=== PATIENT | female | born 1935 | race Caucasian/White ===

== ENCOUNTER 2017-07-08 08:51 | Inpatient (IN) | payer MEDICARE, BC ==
[2017-07-08] MEDS ORDERED: Sodium Chloride 0.9% 1,000 ML IV SCH (09:15)
--- NOTE | 2017-07-08 09:15 | EDM.PDOC ---
ED HPI GENERAL MEDICAL PROBLEM - General Chief Complaint: Neurological Problem Stated Complaint: [facility] ambulance Time Seen by Provider: 07/08/17 09:05 Source of Information: Reports: EMS Notes Reviewed, Family History Limitations: Reports: Altered Mental Status - History of Present Illness INITIAL COMMENTS - FREE TEXT/NARRATIVE: 81-year-old female presents to the ED per ambulance from [place]. KULDIP rowley lives alone at home but is careful by her daughter who is a RN. 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 Reportedly she's not been eating or drinking much for the last 2-3 days. No history of vomiting. No BM 3 days. Due to not taking any fluids or medications yet today she was out to the ED for further evaluation. She seems to have increased weakness of her left abraham-face which was not noticed prior. Patient said previous CVA with right hemiparesis. She no longer walks. Police apparently arrived on scene initially and placed her on a mask at 15 L/m. It's unclear what her initial O2 sats were. Paramedics his left the mask in place. A she herself is nonverbal. She will obey commands and spoken to quite loudly such as opening her mouth . Mouth is very dry and tongue is coated she clinically is volume depleted with poor skin turgor. Apparently she took only a few sips of fluids this morning. Patient's CODE STATUS is DO NOT RESUSCITATE DO NOT INTUBATE comfort care measures for the most part only. Onset: Gradual Onset Date: 07/06/17 Duration: Hour(s): Location: Reports: Generalized (Generalized) Quality: Reports: Other (Question is whether or not she's had a recurrent stroke. She is on Xarelto because of intermittent nature fibrillation.) Severity: Moderate (Previous right hemiparesis and perhaps left facial weakness appreciated the last few days.) Improves with: Reports: None Worsens with: Reports: None Context: Denies: Activity, Exercise, Lifting, Sick Contact, Trauma, Other Associated Symptoms: Reports: Confusion, Diaphoresis, Loss of Appetite, Weakness (Seems to have increased weakness even on her right side and perhaps some left-sided facial weakness appreciated by family and paramedics.). Denies : No Other Symptoms, Chest Pain, Cough, cough w sputum, Fever/Chills (Presents cool and clammy.), Nausea/Vomiting Treatments PEDIGREE TRACER: Reports: Other (see below) - Related Data Allergies Allergy/AdvReac Type Severity Reaction Status Date / Time lisinopril Allergy Cannot Verified 07/28/15 07:35 Remember Home Meds: Home Meds Acetaminophen [Tylenol] 650 mg PO TID 07/08/17 [History] Aspirin [Lo-Dose Aspirin EC] 81 mg PO DAILY 07/08/17 [History] Bisacodyl [Correctol] 5 mg PO ASDIRECTED 07/08/17 [History] Clopidogrel [Plavix] 75 mg PO DAILY 07/08/17 [History] Cranberry 400 mg PO DAILY 07/08/17 [History] Gabapentin [Neurontin] 300 mg PO BEDTIME 07/08/17 [History] Hydrochlorothiazide 25 mg PO DAILY 07/08/17 [History] Memantine [Namenda] 10 mg PO BID 07/08/17 [History] Polyethylene Glycol 3350 [MiraLAX] 17 gm PO DAILY PRN 07/08/17 [History] QUEtiapine Fumarate [Seroquel] 25 mg PO BEDTIME 07/08/17 [History] Sennosides/Docusate Sodium [Senna-Docusate Sodium] 1 tab PO BID 07/08/17 [ History] Sertraline [Zoloft] 50 mg PO DAILY 07/08/17 [History] amLODIPine [Norvasc] 5 mg PO DAILY 07/08/17 [History] atorvaSTATin [Lipitor] 10 mg PO BEDTIME 07/08/17 [History] traMADol [Ultram] 50 mg PO BID PRN 07/08/17 [History] Past Medical History HEENT History: Reports: Macular Degeneration Other HEENT History: cereumen impaction Cardiovascular History: Reports: High Cholesterol, Hypertension Gastrointestinal History: Reports: GERD Genitourinary History: Reports: UTI, Recurrent Other Genitourinary History: uterine prolapse with pessary Musculoskeletal History: Reports: Fibromyalgia, Osteoarthritis Other Neuro History: dementia, dizziness Psychiatric History: Reports: Dementia Other Dermatologic History: toe ulcer - Past Surgical History HEENT Surgical History: Reports: Cataract Surgery, Tonsillectomy Social & Family History - Tobacco Use Smoking Status *Q: Never Smoker Second Hand Smoke Exposure: No - Alcohol Use Days Per Week of Alcohol Use: 0 - Recreational Drug Use Recreational Drug Use: No Drug Use in Last 12 Months: No - Living Situation & Occupation Living situation: Reports: , with Family (She lives with her daughter who is an RN in [place].) Occupation: Retired ED ROS GENERAL - Review of Systems Review Of Systems: See Below Constitutional: Reports: Malaise, Weakness, Fatigue, Decreased Appetite, Weight Loss. Denies: Fever, Chills HEENT: Reports: Other (Poor eyesight) Respiratory: Reports: Shortness of Breath, Cough (Occasional nonproductive cough ). Denies: Wheezing, Pleuritic Chest Pain Endocrine: Reports: Fatigue GI/Abdominal: Reports: Constipation (No bowel movement 3 days.). Denies: Vomiting : Reports: Other (Prone to urinary tract infections. Incontinent of urine at times) Musculoskeletal: Reports: Joint Pain (Often both knees she's had previous right total knee replacement but this remains painful for her. She no longer is ambulatory.) Skin: Reports: Diaphoresis, Other (Cold clammy and pallid in presentation.) - Physical Exam Exam: See Below Exam Limited By: Other (Patient is nonverbal.) General Appearance: Moderate Distress ( She will be okay him commands such as opening her mouth.), Other (Lips are very dry tongue is very dry and coated as is the roof of her mouth and buccal mucosa.) Eye Exam: Bilateral Eye: Normal Inspection (No jaundice.) Throat/Mouth: Other Head Exam: Atraumatic (Again tongue is very dry coated as is the oropharynx and the roof of her mouth.), Normocephalic Neck: No: Carotid Bruit, Lymphadenopathy (L), Lymphadenopathy (R) Respiratory/Chest: Decreased Breath Sounds (Breath sounds are diminished to the) , Rhonchi ( lower 30% of lung zaldivar that she's taking shallow respirations. Occasional rhonchi appreciated anteriorly.). No: Wheezing Cardiovascular: Regular Rate, Rhythm (Heart rate is 100 and sinus on the monitor.), No Edema, No Gallop, No JVD, No Murmur, No Rub GI/Abdominal: Soft, Non-Tender, No Organomegaly Neuro Exam (Abbreviated): Other (Patient is nonverbal. She does not walk anymore. She has a right hemiparesis. I can detect no movement on the right side. Absence of reflexes both patellar and biceps on the right side. She has a 2+ reflex at the left knee joint. The biceps is 1+ on the left side) DTR: 0: Bicep (R), Patella (R), Achilles (R), Achilles (L), 1+: Bicep (L), 2+: Patella (L) Extremities: Normal Inspection, Other (Right knee shows evidence of total knee replacement but it is swollen and very warm to palpation suggestive of underlying inflammatory process.) Skin Exam: Cool, Pallor ( pallor.), Other (Clinical summary clammy and) EKG INTERPRETATION EKG Date: 07/08/17 Time: 09:05 Rhythm: NSR Rate (Beats/Min): 100 [place]: LAD-Left [place] Deviation (-31) P-Wave: Present QRS: Other (Q waves in II, III, and F aVF compatible with an old inferior wall myocardial infarction. There is a Q-wave in V1 near Q waves V2 V3 V4 which delayed R-wave progression. Highly suspect an old anteroseptal myocardial infarction as well.) EKG Interpretation Comments: Abnormal ECG Course - Vital Signs Last Recorded V/S: Last Vital Signs Temp 36.0 C 07/08/17 09:20 Pulse 92 07/08/17 09:20 Resp 16 07/08/17 09:20 BP 119/87 07/08/17 09:20 Pulse Ox 95 07/08/17 09:20 - Orders/Labs/Meds Orders: Active Orders 24 hr Category Date Time Status Admission Status [Patient Status] [ADT] Routine ADT 07/08/17 11:48 Ordered EKG Documentation Completion [RC] STAT Care 07/08/17 09:01 Active Oxygen Therapy [RC] ASDIRECTED Care 07/08/17 09:02 Active CULTURE BLOOD [BC] Stat Lab 07/08/17 09:32 Received CULTURE BLOOD [BC] Stat Lab 07/08/17 09:50 Received Sodium Chloride 0.9% [Normal Saline] 1,000 ml Med 07/08/17 09:15 Active IV ASDIRECTED Blood Culture x2 Reflex Set [OM.PC] Stat Oth 07/08/17 09:02 Ordered Medication Orders Sodium Chloride (Normal Saline) 1,000 mls @ 500 mls/hr IV ASDIRECTED BRITTNI Last Admin: 07/08/17 09:16 Dose: 500 mls/hr Labs: Laboratory Tests 07/08/17 07/08/1707/08/18 Range/Units 08:57 09:02 09:02 WBC 11.75 H (3.98-10.04) K/mm3 RBC 4.95 (3.98-5.22) M/mm3 Hgb 16.3 H (11.2-15.7) gm/L Hct 49.3 H (34.1-44.9) % MCV 99.6 H (79.4-94.8) fl MCH 32.9 H (25.6-32.2) pg MCHC 33.1 (32.2-35.5) g/dl RDW Std Deviation 51.2 H (36.4-46.3) fL Plt Count 278 (182-369) K/mm3 MPV 10.2 (9.4-12.3) fl Neutrophils % (Manual) 77 H (40-60) % Band Neutrophils % 1 (0-10) % Lymphocytes % (Manual) 16 L (20-40) % Atypical Lymphs % 0 % Monocytes % (Manual) 5 (2-10) % Eosinophils % (Manual) 1 (0.7-5.8) % Basophils % (Manual) 0 L (0.1-1.2) Platelet Estimate Adequate Plt Morphology Comment Normal RBC Morph Comment Normal PT (8.0-13.0) SECONDS INR Sodium 140 (136-145) mEq/L Potassium 3.8 (3.5-5.1) mEq/L Chloride 99 (98-107) mEq/L Carbon Dioxide 35 H (21-32) mEq/L Anion Gap 9.8 (5-15) BUN 19 H (7-18) mg/dL Creatinine 0.8 (0.55-1.02) mg/dL Est Cr Clr Drug Dosing TNP Estimated GFR (MDRD) > 60 (>60) mL/min BUN/Creatinine Ratio 23.8 H (14-18) Glucose 119 H (83-115) mg/dL POC Glucose 115 H (83-110) mg/dL Serum Osmolality 301 H (280-300) mosm/kg Lactic Acid (0.4-2.0) mmol/L Calcium 10.0 (8.5-10.1) mg/dL Magnesium 2.3 (1.8-2.4) mg/dl Total Bilirubin 1.0 (0.2-1.0) mg/dL AST 84 H (15-37) U/L ALT 37 (14-59) U/L Alkaline Phosphatase 65 (46-116) U/L CK-MB (CK-2) 8.8 H (0-3.6) ng/ml Troponin I 0.394 H* (0.00-0.056) ng/mL C-Reactive Protein 7.0 H* (<1.0) mg/dL NT-Pro-B Natriuret Pep (0-450) pg/mL Total Protein 7.1 (6.4-8.2) g/dl Albumin 3.2 L (3.4-5.0) g/dl Globulin 3.9 gm/dL Albumin/Globulin Ratio 0.8 L (1-2) Urine Color (Yellow) Urine Appearance (Clear) Urine pH (5.0-8.0) Ur Specific [place] (1.005-1.030) Urine Protein (Negative) Urine Glucose (UA) (Negative) Urine Ketones (Negative) Urine Occult Blood (Negative) Urine Nitrite (Negative) Urine Bilirubin (Negative) Urine Urobilinogen (0.2-1.0) Ur Leukocyte Esterase (Negative) 07/08/17 07/08/17 07/08/17 Range/Units 09:02 09:02 09:10 WBC (3.98-10.04) K/mm3 RBC (3.98-5.22) M/mm3 Hgb (11.2-15.7) gm/L Hct (34.1-44.9) % MCV (79.4-94.8) fl MCH (25.6-32.2) pg MCHC (32.2-35.5) g/dl RDW Std Deviation (36.4-46.3) fL Plt Count (182-369) K/mm3 MPV (9.4-12.3) fl Neutrophils % (Manual) (40-60) % Band Neutrophils % (0-10) % Lymphocytes % (Manual) (20-40) % Atypical Lymphs % % Monocytes % (Manual) (2-10) % Eosinophils % (Manual) (0.7-5.8) % Basophils % (Manual) (0.1-1.2) Platelet Estimate Plt Morphology Comment RBC Morph Comment PT 10.9 (8.0-13.0) SECONDS INR 1.02 Sodium (136-145) mEq/L Potassium (3.5-5.1) mEq/L Chloride (98-107) mEq/L Carbon Dioxide (21-32) mEq/L Anion Gap (5-15) BUN (7-18) mg/dL Creatinine (0.55-1.02) mg/dL Est Cr Clr Drug Dosing Estimated GFR (MDRD) (>60) mL/min BUN/Creatinine Ratio (14-18) Glucose (83-115) mg/dL POC Glucose (83-110) mg/dL Serum Osmolality (280-300) mosm/kg Lactic Acid (0.4-2.0) mmol/L Calcium (8.5-10.1) mg/dL Magnesium (1.8-2.4) mg/dl Total Bilirubin (0.2-1.0) mg/dL AST (15-37) U/L ALT (14-59) U/L Alkaline Phosphatase (46-116) U/L CK-MB (CK-2) (0-3.6) ng/ml Troponin I (0.00-0.056) ng/mL C-Reactive Protein (<1.0) mg/dL NT-Pro-B Natriuret Pep 331 (0-450) pg/mL Total Protein (6.4-8.2) g/dl Albumin (3.4-5.0) g/dl Globulin gm/dL Albumin/Globulin Ratio (1-2) Urine Color Dark yellow (Yellow) Urine Appearance Clear (Clear) Urine pH 7.0 (5.0-8.0) Ur Specific [place] 1.020 (1.005-1.030) Urine Protein 1+ H (Negative) Urine Glucose (UA) Negative (Negative) Urine Ketones Negative (Negative) Urine Occult Blood Negative (Negative) Urine Nitrite Negative (Negative) Urine Bilirubin Negative (Negative) Urine Urobilinogen 0.2 (0.2-1.0) Ur Leukocyte Esterase Negative (Negative) 07/08/17 Range/Units 09:32 WBC (3.98-10.04) K/mm3 RBC (3.98-5.22) M/mm3 Hgb (11.2-15.7) gm/L Hct (34.1-44.9) % MCV (79.4-94.8) fl MCH (25.6-32.2) pg MCHC (32.2-35.5) g/dl RDW Std Deviation (36.4-46.3) fL Plt Count (182-369) K/mm3 MPV (9.4-12.3) fl Neutrophils % (Manual) (40-60) % Band Neutrophils % (0-10) % Lymphocytes % (Manual) (20-40) % Atypical Lymphs % % Monocytes % (Manual) (2-10) % Eosinophils % (Manual) (0.7-5.8) % Basophils % (Manual) (0.1-1.2) Platelet Estimate Plt Morphology Comment RBC Morph Comment PT (8.0-13.0) SECONDS INR Sodium (136-145) mEq/L Potassium (3.5-5.1) mEq/L Chloride (98-107) mEq/L Carbon Dioxide (21-32) mEq/L Anion Gap (5-15) BUN (7-18) mg/dL Creatinine (0.55-1.02) mg/dL Est Cr Clr Drug Dosing Estimated GFR (MDRD) (>60) mL/min BUN/Creatinine Ratio (14-18) Glucose (83-115) mg/dL POC Glucose (83-110) mg/dL Serum Osmolality (280-300) mosm/kg Lactic Acid 2.6 H (0.4-2.0) mmol/L Calcium (8.5-10.1) mg/dL Magnesium (1.8-2.4) mg/dl Total Bilirubin (0.2-1.0) mg/dL AST (15-37) U/L ALT (14-59) U/L Alkaline Phosphatase (46-116) U/L CK-MB (CK-2) (0-3.6) ng/ml Troponin I (0.00-0.056) ng/mL C-Reactive Protein (<1.0) mg/dL NT-Pro-B Natriuret Pep (0-450) pg/mL Total Protein (6.4-8.2) g/dl Albumin (3.4-5.0) g/dl Globulin gm/dL Albumin/Globulin Ratio (1-2) Urine Color (Yellow) Urine Appearance (Clear) Urine pH (5.0-8.0) Ur Specific [place] (1.005-1.030) Urine Protein (Negative) Urine Glucose (UA) (Negative) Urine Ketones (Negative) Urine Occult Blood (Negative) Urine Nitrite (Negative) Urine Bilirubin (Negative) Urine Urobilinogen (0.2-1.0) Ur Leukocyte Esterase (Negative) Meds: Medications Generic Name Dose Route Start Last Admin Trade Name Freq PRN Reason Stop Dose Admin Sodium Chloride 1,000 mls @ 500 mls/hr 07/08/17 09:15 07/08/17 09:16 Normal Saline IV 500 mls/hr ASDIRECTED BRITTNI Administration Discontinued Medications Generic Name Dose Route Start Last Admin Trade Name Freq PRN Reason Stop Dose Admin Acetaminophen 650 mg 07/08/17 10:13 07/08/17 10:22 Tylenol PO 07/08/17 10:14 650 mg NOW ONE Administration - Radiology Interpretation Free Text/Narrative:: 81-year-old female arrives per ambulance from [place]. Apparently she lives at home with her daughter who is an RN caring for her. Apparently she is gone downhill over the last 3 days with decreased oral intake of solids and fluids. No fevers been appreciated. Sternum for possible recurrence of stroke is apparently she's had a history of CVA with right hemiparesis and many TIAs in the past. She has a history of intermittent atrial fibrillation and is on xarelto. Currently in sinus rhythm. Patient is nonverbal. She has a dense right hemiparesis. Not appreciate any obvious weakness of her left face that she's not able to obey any commands but she was able to open her mouth for inspection. Clinically she is volume depleted. Question is whether she may be septic. She is cool and clammy without a fever at this time. He wishes to identify where the illness might be and is opted for conservative measures with fluids and antibiotics if indicated. CT head will be done because of being on blood thinners to rule out any intracranial hemorrhage. One view chest x-ray routine labs as well as blood cultures and urine by catheterization to be obtained. - Re-Assessments/Exams Free Text/Narrative Re-Assessment/Exam: 07/08/17 10:00 History obtained from the daughter who cares for her indicates that this morning she wasn't looking so well. When she did her vital signs the pulse oximeter suggest her heart rate was going between 170-178 and irregular irregular component with rapid atrial fibrillation. O2 sats were in the low 80s. Therefore the ambulance was summoned. Once he was placed on oxygen she seemed to settle down and heart rate came back down to around 99 100 which is what we got here and she is back in sinus rhythm. On questioning of her mom this morning she was complaining of central chest pain. Of note the lab was called over a elevated troponin level at 0.394. Labs are still pending as his chest x-ray and CT of the head to which are not yet done 07/08/17 10:14 daughter indicates that mother does have a mild headache. We did give her some water but she choked quite easily. Will grind up a 650 mg Tylenol tablet provided in applesauce. CT of the brain reveals advanced degenerative changes with diffuse small vessel ischemic changes in both basal ganglia. Small lacunar infarct appreciated in the right basal ganglia. Large infarct appreciated on the left side. No intracranial mass effect or bleeding. Chest x-ray reveals an elevated left hemidiaphragm which is unchanged from previous chest x-rays. There is appears to be mild hilar ingestion. Patient did not take a big breath therefore poor inspirational view. Thoracic aorta appears to be slightly tortuous. 07/08/17 10:28 Labs are now back. Total white count is 11.75 with 77% neutrophils and 1% bands reported. Hemoglobin is 16.3 with hematocrit of 49.3. Platelet count is 278,000. PT is 10.9 with an INR 1.02. Sodium 140 with potassium of 3.8. Chloride 99 with a bicarbonate of 35. I.e. he is a CO2 retainer. Anion gap is normal at 9.8. BUNs 19 with a creatinine of 0.8. GFR is greater than 60. Glucose is 119 at the bedside it was 1:15. Serum osmolality is 301. Lactic acid is elevated at 2.6. Calcium is 10.0 with a magnesium of 2.3. Total bilirubin 1.0. AST is elevated at 84 ELT is 37. Output phosphatase is 65. Note CK-MB is elevated at 8.8 troponin I is elevated at 0.394 suggesting recent myocardial infarction. C-reactive protein is 7.0. Suggest an underlying infective process. BNP is 331. Urinalysis is pending. 07/08/17 11:05 urinalysis is now back and essentially it is negative for infection. I will discuss case with loss prevention consultant hospitalist Dr. Saavedra with a view to hospitalization. Starting on her med she is not on Xarelto She is on Plavix. Departure - Departure Time of Disposition: 11:50 Disposition: Admitted As Inpatient 65 Condition: Fair Clinical Impression: Hemiparesis affecting right side as late effect of cerebrovascular accident, Elevated C-reactive protein (CRP) Acute myocardial infarction Qualifiers: Myocardial infarction type: non-ST elevation myocardial infarction Qualified Code(s): I21.4 - Non-ST elevation (NSTEMI) myocardial infarction Leukocytosis Qualifiers: Leukocytosis type: unspecified Qualified Code(s): D72.829 - Elevated white blood cell count, unspecified - Discharge Information Referrals: Arnel Lam MD [Primary Care Provider] - Forms: ED Department Discharge - My Orders Last 24 Hours: My Active Orders 07/08/17 09:01 EKG Documentation Completion [RC] STAT 07/08/17 09:02 Oxygen Therapy [RC] ASDIRECTED Blood Culture x2 Reflex Set [OM.PC] Stat 07/08/17 09:15 Sodium Chloride 0.9% [Normal Saline] 1,000 ml IV ASDIRECTED 07/08/17 09:32 CULTURE BLOOD [BC] Stat 07/08/17 09:50 CULTURE BLOOD [BC] Stat 07/08/17 11:48 Admission Status [Patient Status] [ADT] Routine - Assessment/Plan Last 24 Hours: My Active Orders 07/08/17 09:01 EKG Documentation Completion [RC] STAT 07/08/17 09:02 Oxygen Therapy [RC] ASDIRECTED Blood Culture x2 Reflex Set [OM.PC] Stat 07/08/17 09:15 Sodium Chloride 0.9% [Normal Saline] 1,000 ml IV ASDIRECTED 07/08/17 09:32 CULTURE BLOOD [BC] Stat 07/08/17 09:50 CULTURE BLOOD [BC] Stat 07/08/17 11:48 Admission Status [Patient Status] [ADT] Routine
[2017-07-08] MEDS ORDERED: Acetaminophen 325 MG Tab PO ONE (10:13)
--- NOTE | 2017-07-08 10:21 | CT ---
Head CT Technique: Multiple axial sections through the brain were obtained. Intravenous contrast was not utilized. Comparison: Prior head CT exam of 08/01/15. Findings: Ventricles along with basal cisterns and sulci over the convexities are mildly prominent. Minimal diminished density is noted within portions of the periventricular white matter compatible with small vessel ischemic demyelination change. Similar findings are seen within portions of the basal ganglia. No evidence of intracranial hemorrhage. No midline shift or mass effect is seen. Mild atherosclerotic calcification is seen within the vertebral vessels and carotid siphon. Bone window settings were reviewed which shows no acute calvarial abnormality. Visualized sinuses are clear. Impression: 1. Mild senescent change. 2. No acute intracranial abnormality is identified. Diagnostic code #2
--- NOTE | 2017-07-08 10:39 | CR ---
Chest: Frontal view of the chest is obtained utilizing portable technique. Comparison: Prior chest x-ray of 07/31/[address] of 08/01/15. Slight atelectasis and scarring is seen within the left base. Lungs otherwise are clear. Heart size is normal. Tortuous thoracic aorta is seen. Scoliosis is present within the spine. Bony structures are osteopenic. Impression: 1. Atelectasis and scarring within the left lung base. 2. Other incidental findings. Nothing acute is otherwise seen. Diagnostic code #2
--- NOTE | 2017-07-08 14:40 | PCM.HP ---
H&P History of Present Illness - General Date of Service: 07/08/17 Admit Problem/Dx: Admission Diagnosis/Problem Admission Diagnosis/Problem Myocardial infarction Source of Information: Family, Provider History Limitations: Reports: No Limitations - History of Present Illness Initial Comments - Free Text/Narative: 81 year old female living at home with her daughter post CVA with a history of dementia presents hypoxic. The patient is more confused. She was placed on a NRM in the field, baseline oxygen saturation is unknown. She has right sided hemiparesis, and expressive aphasia. Initial evaluation documented volume depletion. Abnormal lab findings document, an elevated cardiac enzyme. She did not have a rapid heart rate on presentation; she has a history of PAF reportedly on Xarelto. Onset of Symptoms: Reports: Sudden Symptom Onset Date: 07/08/17 Duration of Symptoms: Reports: Hour(s):, Getting Worse Location: Reports: Generalized Severity: Moderate Improves with: Reports: Medication Worsens with: Reports: None Associated Symptoms: Reports: Loss of Appetite, Malaise, Weakness - Related Data Allergies/Adverse Reactions: Allergies Allergy/AdvReac Type Severity Reaction Status Date / Time lisinopril Allergy Cannot Verified 07/28/15 07:35 Remember Home Medications: Home Meds Acetaminophen [Tylenol] 650 mg PO 06,,07/08/17 [History] Aspirin [Lo-Dose Aspirin EC] 81 mg PO 07/08/17 [History] Bisacodyl [Correctol] 5 mg PO ASDIRECTED PRN 07/08/17 [History] Clopidogrel [Plavix] 75 mg PO 07/08/17 [History] Cranberry 400 mg PO 07/08/17 [History] Gabapentin [Neurontin] 300 mg PO 179907/08/17 [History] Hydrochlorothiazide 25 mg PO 08 07/08/17 [History] Memantine [Namenda] 10 mg PO 07/08/17 [History] Polyethylene Glycol 3350 [MiraLAX] 17 gm PO DAILY PRN 07/08/17 [History] QUEtiapine Fumarate [Seroquel] 25 mg PO 1800 07/08/17 [History] Sennosides/Docusate Sodium [Senna-Docusate Sodium] 1 tab PO ,07/08/17 [ History] Sertraline [Zoloft] 50 mg PO 1800 07/08/17 [History] amLODIPine [Norvasc] 5 mg PO 08 07/08/17 [History] atorvaSTATin [Lipitor] 10 mg PO 1800 07/08/17 [History] traMADol [Ultram] 50 mg PO 07/08/17 [History] Past Medical History HEENT History: Reports: Macular Degeneration Other HEENT History: cereumen impaction Cardiovascular History: Reports: High Cholesterol, Hypertension Gastrointestinal History: Reports: GERD Genitourinary History: Reports: UTI, Recurrent Other Genitourinary History: uterine prolapse with pessary [employer]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: Musculoskeletal History: Reports: Fibromyalgia, Osteoarthritis Other Neuro History: dementia, dizziness Psychiatric History: Reports: Dementia Other Dermatologic History: toe ulcer healed - Infectious Disease History Infectious Disease History: Reports: Chicken Pox - Past Surgical History HEENT Surgical History: Reports: Cataract Surgery, Tonsillectomy GI Surgical History: Reports: Cholecystectomy Social & Family History - Family History Family Medical History: Noncontributory - Tobacco Use Smoking Status *Q: Never Smoker Second Hand Smoke Exposure: No - Caffeine Use Caffeine Use: Reports: Coffee - Alcohol Use Days Per Week of Alcohol Use: 0 - Recreational Drug Use Recreational Drug Use: No Drug Use in Last 12 Months: No - Living Situation & Occupation Living situation: Reports: , with Family (She lives with her daughter who is an RN in [place].) Occupation: Retired H&P Review of Systems - Review of Systems: Review Of Systems: See Below General: Reports: Malaise, Weakness HEENT: Reports: No Symptoms Pulmonary: Reports: No Symptoms Cardiovascular: Reports: No Symptoms Gastrointestinal: Reports: Decreased Appetite Genitourinary: Reports: No Symptoms Musculoskeletal: Reports: No Symptoms Skin: Reports: No Symptoms Psychiatric: Reports: Confusion Neurological: Reports: No Symptoms Hematologic/Lymphatic: Reports: No Symptoms Immunologic: Reports: No Symptoms Exam - Exam Exam: See Below - Vital Signs Vital Signs: Last Vital Signs Temp 36.7 C 07/08/17 12:41 Pulse 73 07/08/17 12:41 Resp 20 07/08/17 12:41 BP 103/72 07/08/17 12:41 Pulse Ox 96 07/08/17 12:41 Weight: 65.952 kg - Exam Quality Assessment: Supplemental Oxygen, DVT Prophylaxis General: Alert, Oriented, Cooperative HEENT: Conjunctiva Clear, Nares Patent, Normal Nasal Septum, Pupils Equal, Pupils Reactive, PERRLA Neck: Trachea Midline Lungs: Clear to Auscultation, Normal Respiratory Effort Cardiovascular: Regular Rate, Regular Rhythm GI/Abdominal Exam: Normal Bowel Sounds, Soft, Non-Tender, No Organomegaly, No Distention (Female) Exam: Deferred Rectal (Female) Exam: Deferred Back Exam: Normal Inspection Extremities: Normal Inspection Skin: Warm Neurological: Cranial Nerves Intact Neuro Extensive - Mental Status: Alert Neuro Extensive - Motor, Sensory, Reflexes: CN II-XII Intact Psychiatric: Alert - Patient Data Result Diagrams: 07/08/17 09:02 07/08/17 09:02 *Q Meaningful Use (ADM) - VTE *Q VTE Criteria *Q: - Stroke *Q Stroke Criteria *Q: - AMI *Q AMI Criteria *Q: - Problem List (1) Acute myocardial infarction SNOMED Code(s): 93279864 ICD Code: I21.9 - ACUTE MYOCARDIAL INFARCTION, UNSPECIFIED Status: Acute Current Visit: Yes Qualifiers: Myocardial infarction type: non-ST elevation myocardial infarction Qualified Code(s): I21.4 - Non-ST elevation (NSTEMI) myocardial infarction (2) Elevated C-reactive protein (CRP) SNOMED Code(s): 519557690679597 ICD Code: R79.82 - ELEVATED C-REACTIVE PROTEIN (CRP) Status: Acute Current Visit: Yes (3) Hemiparesis affecting right side as late effect of cerebrovascular accident SNOMED Code(s): 259561486 ICD Code: I69.351 - HEMIPLGA FOLLOWING CEREBRAL INFRC AFF RIGHT DOMINANT SIDE Status: Acute Current Visit: Yes (4) Leukocytosis SNOMED Code(s): 508597545 ICD Code: D72.829 - ELEVATED WHITE BLOOD CELL COUNT, UNSPECIFIED Status: Acute Current Visit: Yes Qualifiers: Leukocytosis type: unspecified Qualified Code(s): D72.829 - Elevated white blood cell count, unspecified Problem List Initiated/Reviewed/Updated: Yes Orders Last 24hrs: Active Orders 24 hr Category Date Time Status [employer] Evaluation and Treatment [CONS] Routine Cons 07/08/17 14:01 Active Heart Healthy Diet [DIET] Diet 07/08/17 Dinner Active Soft Diet [DIET] Diet 07/08/17 Dinner Active Code Status [Resuscitation Status] Routine Resus Stat 07/08/17 13:00 Ordered Medication Orders Sodium Chloride (Normal Saline) 1,000 mls @ 500 mls/hr IV ASDIRECTED [facility] Last Admin: 07/08/17 09:16 Dose: 500 mls/hr Assessment/Plan Comment:: Impression: ACS/NONSTEMI without prior documented history ECG changes suggest an old [place] Reportedly history of PAF on Xarelto, will clarify. History of CVA with right sided hemiparesis History of dementia with acute on chronic mental status change Chronic HTN HLD Fibromyalgia Plan: ACS protocol, conservative approach Continue home meds after swallow evaluation Infectious work up 2 D echo re: LVEF, WMA Daily Labs Consult PT/OT.CM (re: ) Code status, DNR/DNI; clarify comfort measures to be added DVT/GI prophylaxis
[2017-07-08] MEDS ORDERED: Bisacodyl 5 MG Tab PO PRN (14:47)
[2017-07-08] MEDS ORDERED: Polyethylene Glycol 3350 Powder 17 GM Packet PO PRN (14:47)
[2017-07-08] MEDS ORDERED: Clopidogrel 75 MG Tab PO ONE (15:15)
[2017-07-08] MEDS: Sodium Chloride 0.45% 1,000 ML IV SCH (15:47)
[2017-07-08] MEDS: Simvastatin 10 MG Tab PO SCH (18:21)
[2017-07-08] MEDS: QUEtiapine 25 MG Tab PO SCH (18:21)
[2017-07-08] MEDS: Sertraline 50 MG Tab PO SCH (18:21)
[2017-07-08] MEDS: Memantine 10 MG Tab PO SCH (18:21)
[2017-07-08] MEDS: traMADol 50 MG Tab PO SCH (18:21)
[2017-07-08] MEDS: Gabapentin 300 MG Cap PO SCH (18:21)
[2017-07-08] MEDS: Enoxaparin 60 MG/0.6 ML Syringe SUBCUT SCH (18:21)
[2017-07-08] MEDS: Doxycycline 100 MG in Sodium Chloride 0.9% 100 ML IV SCH (22:35)
[2017-07-08] MEDS: Saccharomyces Boulardii (Probiotic) 250 MG Cap PO SCH (22:35)
[2017-07-09] MEDS: Sodium Chloride 0.45% 1,000 ML IV SCH (01:28)
[2017-07-09] MEDS: Enoxaparin 60 MG/0.6 ML Syringe SUBCUT SCH ×2 (05:56→18:18)
[2017-07-09] MEDS: Saccharomyces Boulardii (Probiotic) 250 MG Cap PO SCH ×2 (08:53→20:21)
[2017-07-09] MEDS: Aspirin 81 MG Tab.EC PO SCH (08:53)
[2017-07-09] MEDS: amLODIPine 5 MG Tab PO SCH (08:53)
[2017-07-09] MEDS: Clopidogrel 75 MG Tab PO SCH (08:53)
[2017-07-09] MEDS: traMADol 50 MG Tab PO SCH ×2 (08:54→18:18)
[2017-07-09] MEDS: Memantine 10 MG Tab PO SCH ×2 (08:54→18:19)
[2017-07-09] MEDS: Doxycycline 100 MG in Sodium Chloride 0.9% 100 ML IV SCH ×2 (09:01→20:22)
[2017-07-09] MEDS: Sertraline 50 MG Tab PO SCH (18:18)
[2017-07-09] MEDS: QUEtiapine 25 MG Tab PO SCH (18:18)
[2017-07-09] MEDS: Gabapentin 300 MG Cap PO SCH (18:18)
[2017-07-09] MEDS: Simvastatin 10 MG Tab PO SCH (18:19)
--- NOTE | 2017-07-09 19:19 | PCM.PN ---
- General Info Date of Service: 07/09/17 Functional Status: Reports: Urinating - Review of Systems General: Reports: Weakness, Malaise HEENT: Reports: No Symptoms Pulmonary: Reports: Shortness of Breath Cardiovascular: Reports: No Symptoms Gastrointestinal: Reports: No Symptoms Genitourinary: Reports: No Symptoms Musculoskeletal: Reports: No Symptoms Skin: Reports: No Symptoms Neurological: Reports: No Symptoms Psychiatric: Reports: No Symptoms - Patient Data Vitals - Most Recent: Last Vital Signs Temp 37.1 C 07/09/17 14:36 Pulse 71 07/09/17 14:36 Resp 24 H 07/09/17 14:36 BP 107/88 07/09/17 14:36 Pulse Ox 99 07/09/17 14:36 Weight - Most Recent: 67.54 kg I&O - Last 24 Hours: Intake & Output 07/09/17 07/09/17 07/09/17 06:59 14:59 22:59 Intake Total 30 90 240 Balance 30 90 240 Lab Results Last 24 Hours: Laboratory Results - last 24 hr 07/09/17 07/09/17 07/09/17 Range/Units 06:45 06:50 06:50 WBC 7.83 (3.98-10.04) K/mm3 RBC 4.03 (3.98-5.22) M/mm3 Hgb 12.6 (11.2-15.7) gm/L Hct 40.7 (34.1-44.9) % MCV 101.0 H (79.4-94.8) fl MCH 31.3 (25.6-32.2) pg MCHC 31.0 L (32.2-35.5) g/dl RDW Std Deviation 49.1 H (36.4-46.3) fL Plt Count 216 (182-369) K/mm3 MPV 10.3 (9.4-12.3) fl Neut % (Auto) 62.5 (34.0-71.1) % Lymph % (Auto) 23.5 (19.3-51.7) % [place] % (Auto) 11.4 (4.7-12.5) % Eos % (Auto) 2.2 (0.7-5.8) Baso % (Auto) 0.1 (0.1-1.2) % Neut # (Auto) 4.90 (1.56-6.13) K/mm3 Lymph # (Auto) 1.84 (1.18-3.74) K/mm3 [place] # (Auto) 0.89 H (0.24-0.36) K/mm3 Eos # (Auto) 0.17 (0.04-0.36) K/mm3 Baso # (Auto) 0.01 (0.01-0.08) K/mm3 Sodium 137 (136-145) mEq/L Potassium 2.9 L (3.5-5.1) mEq/L Chloride 101 (98-107) mEq/L Carbon Dioxide 33 H (21-32) mEq/L Anion Gap 5.9 (5-15) BUN 14 (7-18) mg/dL Creatinine 0.5 L (0.55-1.02) mg/dL Est Cr Clr Drug Dosing 65.46 mL/min Estimated GFR (MDRD) > 60 (>60) mL/min BUN/Creatinine Ratio 28.0 H (14-18) Glucose 83 (83-115) mg/dL Lactic Acid 0.8 (0.4-2.0) mmol/L Calcium 8.9 (8.5-10.1) mg/dL Troponin I 0.781 H* (0.00-0.056) ng/mL C-Reactive Protein 12.3 H* (<1.0) mg/dL Ignacio Results Last 24 Hours: Microbiology 07/08/17 15:16 Influenza Type A Antigen Screen - Final Nasal, Unspecified NEGATIVE INFLUENZA A VIRUS AG Influenza Type B Antigen Screen - Final NEGATIVE INFLUENZA B VIRUS AG Med Orders - Current: Current Medications Amlodipine Besylate (Norvasc) 5 mg PO DAILY@0800 [facility] Last Admin: 07/09/17 08:53 Dose: 5 mg Aspirin (Halfprin) 81 mg PO DAILY@0800 [facility] Last Admin: 07/09/17 08:53 Dose: 81 mg Bisacodyl (Dulcolax) 5 mg PO ASDIRECTED PRN PRN Reason: Constipation Clopidogrel Bisulfate (Plavix) 75 mg PO DAILY@0800 [facility] Last Admin: 07/09/17 08:53 Dose: 75 mg Enoxaparin Sodium (Lovenox) 60 mg SUBCUT Q12H [facility] Last Admin: 07/09/17 18:18 Dose: 60 mg Gabapentin (Neurontin) 300 mg PO DAILY@1800 [facility] Last Admin: 07/09/17 18:18 Dose: 300 mg Doxycycline Hyclate 100 mg/ (Sodium Chloride) 100 mls @ 100 mls/hr IV Q12HR [facility] Last Admin: 07/09/17 09:01 Dose: 100 mls/hr Memantine (Namenda) 10 mg PO BID@0800,1800 [facility] Last Admin: 07/09/17 18:19 Dose: 10 mg Polyethylene Glycol (Miralax) 17 gm PO DAILY PRN PRN Reason: Constipation Quetiapine Fumarate (Seroquel) 25 mg PO QPM [facility] Last Admin: 07/09/17 18:18 Dose: 25 mg Saccharomyces Boulardii (Florastor) 250 mg PO BID [facility] Last Admin: 07/09/17 08:53 Dose: 250 mg Senna/Docusate Sodium (Senna Plus) 1 tab PO BID@0800,1800 [facility] Last Admin: 07/09/17 18:18 Dose: 1 tab Sertraline HCl (Zoloft) 50 mg PO QPM [facility] Last Admin: 07/09/17 18:18 Dose: 50 mg Simvastatin (Zocor) 10 mg PO QPM [facility] Last Admin: 07/09/17 18:19 Dose: 10 mg Tramadol HCl (Ultram) 50 mg PO BID@0800,1800 [facility] Last Admin: 07/09/17 18:18 Dose: 50 mg Discontinued Medications Acetaminophen (Tylenol) 650 mg PO NOW ONE Stop: 07/08/17 10:14 Last Admin: 07/08/17 10:22 Dose: 650 mg Clopidogrel Bisulfate (Plavix) 300 mg PO ONETIME ONE Stop: 07/08/17 15:16 Last Admin: 07/08/17 15:47 Dose: 300 mg Sodium Chloride (Normal Saline) 1,000 mls @ 500 mls/hr IV ASDIRECTED [facility] Last Admin: 07/08/17 09:16 Dose: 500 mls/hr Sodium Chloride (Sodium Chloride 0.45%) 1,000 mls @ 100 mls/hr IV ASDIRECTED [facility] Stop: 07/09/17 09:00 Last Admin: 07/09/17 01:28 Dose: 100 mls/hr - Exam Quality Assessment: DVT Prophylaxis General: Alert, Oriented, Cooperative, No Acute Distress HEENT: Pupils Equal, Pupils Reactive, EOMI Neck: Trachea Midline, No JVD Lungs: Normal Respiratory Effort Cardiovascular: Regular Rate GI/Abdominal Exam: Normal Bowel Sounds, Soft, Non-Tender, No Organomegaly, No Distention (Female) Exam: Deferred Back Exam: Normal Inspection Extremities: Normal Inspection, Non-Tender, Normal Capillary Refill Skin: Warm Neurological: No New Focal Deficit Psy/Mental Status: Alert, Depressed - Problem List & Annotations (1) Acute myocardial infarction SNOMED Code(s): 07842406 Code(s): I21.9 - ACUTE MYOCARDIAL INFARCTION, UNSPECIFIED Status: Acute Current Visit: Yes Qualifiers: Myocardial infarction type: non-ST elevation myocardial infarction Qualified Code(s): I21.4 - Non-ST elevation (NSTEMI) myocardial infarction (2) Elevated C-reactive protein (CRP) SNOMED Code(s): 801327195041152 Code(s): R79.82 - ELEVATED C-REACTIVE PROTEIN (CRP) Status: Acute Current Visit: Yes (3) Hemiparesis affecting right side as late effect of cerebrovascular accident SNOMED Code(s): 494120685 Code(s): I69.351 - HEMIPLGA FOLLOWING CEREBRAL INFRC AFF RIGHT DOMINANT SIDE Status: Acute Current Visit: Yes (4) Leukocytosis SNOMED Code(s): 991269783 Code(s): D72.829 - ELEVATED WHITE BLOOD CELL COUNT, UNSPECIFIED Status: Acute Current Visit: Yes Qualifiers: Leukocytosis type: unspecified Qualified Code(s): D72.829 - Elevated white blood cell count, unspecified - Problem List Review Problem List Initiated/Reviewed/Updated: Yes - My Orders Last 24 Hours: My Active Orders 07/09/17 08:00 Aspirin [Halfprin] 81 mg PO DAILY@0800 Clopidogrel [Plavix] 75 mg PO DAILY@0800 amLODIPine [Norvasc] 5 mg PO DAILY@0800 07/09/17 20:00 Potassium Chloride 60 meq PO DAILY 07/10/17 05:00 BMP [BASIC METABOLIC PANEL,BMP] [CHEM] DAILY CBC WITH AUTO DIFF [HEME] DAILY CRP [C-REACTIVE PROTEIN] [CHEM] DAILY LACTIC ACID [CHEM] DAILY 07/10/17 08:00 CXR [Chest 1V Frontal] [CR] Routine 07/11/17 05:00 BMP [BASIC METABOLIC PANEL,BMP] [CHEM] DAILY CBC WITH AUTO DIFF [HEME] DAILY CRP [C-REACTIVE PROTEIN] [CHEM] DAILY LACTIC ACID [CHEM] DAILY 07/12/17 05:00 BMP [BASIC METABOLIC PANEL,BMP] [CHEM] DAILY CBC WITH AUTO DIFF [HEME] DAILY CRP [C-REACTIVE PROTEIN] [CHEM] DAILY LACTIC ACID [CHEM] DAILY - Plan Plan:: Impression: ACS/NONSTEMI without prior documented history PNA, mycoplasma ECG changes suggest an old [place] Reportedly history of PAF on Xarelto, will clarify. History of CVA with right sided hemiparesis History of dementia with acute on chronic mental status change Hypokalemia Chronic HTN HLD Fibromyalgia Plan: ACS protocol, conservative approach Continue home meds after swallow evaluation Coverage for mycoplasma 2 D echo re: LVEF, WMA Daily Labs Consult PT/OT.CM (re: ) Code status, DNR/DNI; clarify comfort measures to be added DVT/GI prophylaxis
[2017-07-09] MEDS: Potassium Chloride 10% 20 MEQ/15 ML Soln 30 ML UD Cup PO SCH (20:21)
[2017-07-10] MEDS: Enoxaparin 60 MG/0.6 ML Syringe SUBCUT SCH ×2 (06:29→17:15)
[2017-07-10] MEDS: Memantine 10 MG Tab PO SCH ×2 (08:06→17:16)
[2017-07-10] MEDS: traMADol 50 MG Tab PO SCH ×2 (08:07→17:20)
[2017-07-10] MEDS: Clopidogrel 75 MG Tab PO SCH (08:08)
[2017-07-10] MEDS: Aspirin 81 MG Tab.EC PO SCH (08:08)
[2017-07-10] MEDS: Saccharomyces Boulardii (Probiotic) 250 MG Cap PO SCH ×2 (08:09→20:27)
[2017-07-10] MEDS: Doxycycline 100 MG in Sodium Chloride 0.9% 100 ML IV SCH ×2 (08:13→20:27)
[2017-07-10] MEDS: Potassium Chloride 10% 20 MEQ/15 ML Soln 30 ML UD Cup PO SCH (08:13)
[2017-07-10] MEDS: amLODIPine 5 MG Tab PO SCH ×2 (08:13→17:17)
--- NOTE | 2017-07-10 10:36 | CR ---
Chest: Frontal view of the chest was obtained. Comparison: Prior chest x-ray of 07/08/17. Slight atelectasis is noted within the left base. Lungs otherwise are clear. Heart size is normal. Tortuous thoracic aorta is seen. Calcified mediastinal lymph nodes are noted. Scoliosis is noted within the spine. Bony structures are osteopenic. Impression: 1. Incidental findings. Nothing acute is seen. Diagnostic code #2
--- NOTE | 2017-07-10 16:36 | PCM.PN ---
- General Info Functional Status: Reports: Urinating - Review of Systems General: Reports: Weakness, Fatigue HEENT: Reports: No Symptoms Pulmonary: Reports: No Symptoms Cardiovascular: Reports: No Symptoms Gastrointestinal: Reports: No Symptoms Genitourinary: Reports: No Symptoms Musculoskeletal: Reports: No Symptoms Skin: Reports: No Symptoms Neurological: Reports: No Symptoms Psychiatric: Reports: No Symptoms - Patient Data Vitals - Most Recent: Last Vital Signs Temp 36.3 C 07/10/17 14:53 Pulse 79 07/10/17 14:53 Resp 20 07/10/17 14:53 BP 120/75 07/10/17 14:53 Pulse Ox 92 L 07/10/17 14:53 Weight - Most Recent: 68.629 kg I&O - Last 24 Hours: Intake & Output 07/10/17 07/10/17 07/10/17 06:59 14:59 22:59 Intake Total 0 700 Balance 0 700 Lab Results Last 24 Hours: Laboratory Results - last 24 hr 07/10/17 07/10/17 07/10/17 Range/Units 05:27 05:27 05:27 WBC 6.69 (3.98-10.04) K/mm3 RBC 4.21 (3.98-5.22) M/mm3 Hgb 14.0 (11.2-15.7) gm/L Hct 42.6 (34.1-44.9) % MCV 101.2 H (79.4-94.8) fl MCH 33.3 H (25.6-32.2) pg MCHC 32.9 (32.2-35.5) g/dl RDW Std Deviation 49.0 H (36.4-46.3) fL Plt Count 240 (182-369) K/mm3 MPV 10.3 (9.4-12.3) fl Neut % (Auto) 57.0 (34.0-71.1) % Lymph % (Auto) 27.4 (19.3-51.7) % [place] % (Auto) 12.6 H (4.7-12.5) % Eos % (Auto) 2.7 (0.7-5.8) Baso % (Auto) 0.3 (0.1-1.2) % Neut # (Auto) 3.82 (1.56-6.13) K/mm3 Lymph # (Auto) 1.83 (1.18-3.74) K/mm3 [place] # (Auto) 0.84 H (0.24-0.36) K/mm3 Eos # (Auto) 0.18 (0.04-0.36) K/mm3 Baso # (Auto) 0.02 (0.01-0.08) K/mm3 Sodium 141 (136-145) mEq/L Potassium 4.3 (3.5-5.1) mEq/L Chloride 105 (98-107) mEq/L Carbon Dioxide 32 (21-32) mEq/L Anion Gap 8.3 (5-15) BUN 9 (7-18) mg/dL Creatinine 0.5 L (0.55-1.02) mg/dL Est Cr Clr Drug Dosing 65.46 mL/min Estimated GFR (MDRD) > 60 (>60) mL/min BUN/Creatinine Ratio 18.0 (14-18) Glucose 84 (83-115) mg/dL Lactic Acid 1.0 (0.4-2.0) mmol/L Calcium 9.2 (8.5-10.1) mg/dL C-Reactive Protein 6.8 H* (<1.0) mg/dL Med Orders - Current: Current Medications Amlodipine Besylate (Norvasc) 5 mg PO DAILY@1800 [facility] Aspirin (Halfprin) 81 mg PO DAILY@0800 [facility] Last Admin: 07/10/17 08:08 Dose: 81 mg Bisacodyl (Dulcolax) 5 mg PO ASDIRECTED PRN PRN Reason: Constipation Clopidogrel Bisulfate (Plavix) 75 mg PO DAILY@0800 [facility] Last Admin: 07/10/17 08:08 Dose: 75 mg Enoxaparin Sodium (Lovenox) 60 mg SUBCUT Q12H [facility] Last Admin: 07/10/17 06:29 Dose: 60 mg Gabapentin (Neurontin) 300 mg PO DAILY@1800 [facility] Last Admin: 07/09/17 18:18 Dose: 300 mg Doxycycline Hyclate 100 mg/ (Sodium Chloride) 100 mls @ 100 mls/hr IV Q12HR [facility] Last Admin: 07/10/17 08:13 Dose: 100 mls/hr Memantine (Namenda) 10 mg PO BID@0800,1800 [facility] Last Admin: 07/10/17 08:06 Dose: 10 mg Polyethylene Glycol (Miralax) 17 gm PO DAILY PRN PRN Reason: Constipation Quetiapine Fumarate (Seroquel) 25 mg PO QPM [facility] Last Admin: 07/09/17 18:18 Dose: 25 mg Saccharomyces Boulardii (Florastor) 250 mg PO BID [facility] Last Admin: 07/10/17 08:09 Dose: 250 mg Senna/Docusate Sodium (Senna Plus) 1 tab PO BID@0800,1800 [facility] Last Admin: 07/10/17 08:07 Dose: 1 tab Sertraline HCl (Zoloft) 50 mg PO QPM [facility] Last Admin: 07/09/17 18:18 Dose: 50 mg Simvastatin (Zocor) 10 mg PO QPM [facility] Last Admin: 07/09/17 18:19 Dose: 10 mg Tramadol HCl (Ultram) 50 mg PO BID@0800,1800 [facility] Last Admin: 07/10/17 08:07 Dose: 50 mg Discontinued Medications Acetaminophen (Tylenol) 650 mg PO NOW ONE Stop: 07/08/17 10:14 Last Admin: 07/08/17 10:22 Dose: 650 mg Amlodipine Besylate (Norvasc) 5 mg PO DAILY@0800 [facility] Last Admin: 07/10/17 08:13 Dose: Not Given Clopidogrel Bisulfate (Plavix) 300 mg PO ONETIME ONE Stop: 07/08/17 15:16 Last Admin: 07/08/17 15:47 Dose: 300 mg Sodium Chloride (Normal Saline) 1,000 mls @ 500 mls/hr IV ASDIRECTED [facility] Last Admin: 07/08/17 09:16 Dose: 500 mls/hr Sodium Chloride (Sodium Chloride 0.45%) 1,000 mls @ 100 mls/hr IV ASDIRECTED [facility] Stop: 07/09/17 09:00 Last Admin: 07/09/17 01:28 Dose: 100 mls/hr Potassium Chloride (Potassium Chloride) 60 meq PO DAILY [facility] Stop: 07/11/17 09:01 Last Admin: 07/10/17 08:13 Dose: 60 meq - Exam Quality Assessment: Supplemental Oxygen, DVT Prophylaxis General: Alert, Oriented, Cooperative, No Acute Distress HEENT: Pupils Equal, Pupils Reactive, EOMI Neck: Trachea Midline Lungs: Normal Respiratory Effort Cardiovascular: Regular Rate GI/Abdominal Exam: Normal Bowel Sounds, Soft, Non-Tender, No Organomegaly, No Distention (Female) Exam: Deferred Back Exam: Normal Inspection Extremities: Normal Inspection Skin: Warm Neurological: No New Focal Deficit Psy/Mental Status: Alert, Normal Affect, Normal Mood - Problem List & Annotations (1) Acute myocardial infarction SNOMED Code(s): 01736115 Code(s): I21.9 - ACUTE MYOCARDIAL INFARCTION, UNSPECIFIED Status: Acute Current Visit: Yes Qualifiers: Myocardial infarction type: non-ST elevation myocardial infarction Qualified Code(s): I21.4 - Non-ST elevation (NSTEMI) myocardial infarction (2) Elevated C-reactive protein (CRP) SNOMED Code(s): 035246658135373 Code(s): R79.82 - ELEVATED C-REACTIVE PROTEIN (CRP) Status: Acute Current Visit: Yes (3) Hemiparesis affecting right side as late effect of cerebrovascular accident SNOMED Code(s): 595288883 Code(s): I69.351 - HEMIPLGA FOLLOWING CEREBRAL INFRC AFF RIGHT DOMINANT SIDE Status: Acute Current Visit: Yes (4) Leukocytosis SNOMED Code(s): 653435769 Code(s): D72.829 - ELEVATED WHITE BLOOD CELL COUNT, UNSPECIFIED Status: Acute Current Visit: Yes Qualifiers: Leukocytosis type: unspecified Qualified Code(s): D72.829 - Elevated white blood cell count, unspecified - Problem List Review Problem List Initiated/Reviewed/Updated: Yes - My Orders Last 24 Hours: My Active Orders 07/10/17 18:00 amLODIPine [Norvasc] 5 mg PO DAILY@1800 07/11/17 05:00 BMP [BASIC METABOLIC PANEL,BMP] [CHEM] DAILY CBC WITH AUTO DIFF [HEME] DAILY CRP [C-REACTIVE PROTEIN] [CHEM] DAILY FOLIC ACID [CHEM] Routine LACTIC ACID [CHEM] DAILY VITAMIN B12 [CHEM] Routine 07/12/17 05:00 BMP [BASIC METABOLIC PANEL,BMP] [CHEM] DAILY CBC WITH AUTO DIFF [HEME] DAILY CRP [C-REACTIVE PROTEIN] [CHEM] DAILY LACTIC ACID [CHEM] DAILY - Plan Plan:: Impression: ACS/NONSTEMI without prior documented history PNA, mycoplasma ECG changes suggest an old [place] Reportedly history of PAF on Xarelto. History of CVA with right sided hemiparesis History of dementia with acute on chronic mental status change Hypokalemia--corrected Chronic HTN HLD Fibromyalgia Plan: ACS protocol, conservative approach Continue home meds after swallow evaluation Coverage for mycoplasma 2 D echo re: LVEF, WMA Daily Labs Consult PT/OT.CM (re: ) Code status, DNR/DNI; clarify comfort measures DVT/GI prophylaxis
[2017-07-10] MEDS: Sertraline 50 MG Tab PO SCH (17:15)
[2017-07-10] MEDS: Simvastatin 10 MG Tab PO SCH (17:16)
[2017-07-10] MEDS: QUEtiapine 25 MG Tab PO SCH (17:16)
[2017-07-10] MEDS: Gabapentin 300 MG Cap PO SCH (17:21)
[2017-07-11] MEDS: Enoxaparin 60 MG/0.6 ML Syringe SUBCUT SCH ×2 (05:41→18:25)
[2017-07-11] MEDS: traMADol 50 MG Tab PO SCH ×2 (09:59→18:25)
[2017-07-11] MEDS: Aspirin 81 MG Tab.EC PO SCH (10:00)
[2017-07-11] MEDS: Memantine 10 MG Tab PO SCH ×2 (10:00→18:17)
[2017-07-11] MEDS: Doxycycline 100 MG in Sodium Chloride 0.9% 100 ML IV SCH (10:00)
[2017-07-11] MEDS: Clopidogrel 75 MG Tab PO SCH (10:00)
[2017-07-11] MEDS: Saccharomyces Boulardii (Probiotic) 250 MG Cap PO SCH ×2 (10:00→21:31)
--- NOTE | 2017-07-11 15:10 | PCM.PN ---
- General Info Date of Service: 07/11/17 Admission Dx/Problem (Free Text): Admission Diagnosis/Problem Admission Diagnosis/Problem Myocardial infarction Subjective Update: Follow Up Functional Status: Reports: Pain Controlled, Tolerating Diet, Urinating. Denies : Ambulating, New Symptoms - Review of Systems General: Reports: Weakness. Denies: Fever, Fatigue, Malaise, Chills HEENT: Reports: No Symptoms Pulmonary: Denies: Shortness of Breath Cardiovascular: Denies: Chest Pain, Palpitations, Dyspnea on Exertion, Lightheadedness Gastrointestinal: Denies: Abdominal Pain, Nausea, Vomiting Genitourinary: Reports: No Symptoms Musculoskeletal: Reports: No Symptoms Skin: Denies: Cyanosis, Mottled, Pallor, Diaphoresis Neurological: Reports: Difficulty Walking, Weakness, Gait Disturbance. Denies: Confusion Psychiatric: Denies: Depression, Anxiety, Agitation, Hallucinations Systems Review Comment:: No significant overnight or acute issues. She seems relatively fine. She has no new complaints. She appears to be lethargic or somnolent this morning. She is afebrile w/o leukocytosis. - Patient Data Vitals - Most Recent: Last Vital Signs Temp 37.1 C 07/11/17 08:15 Pulse 76 07/11/17 08:15 Resp 20 07/11/17 08:15 BP 123/73 07/11/17 08:15 Pulse Ox 87 L 07/11/17 11:12 Weight - Most Recent: 66.905 kg I&O - Last 24 Hours: Intake & Output 07/11/17 07/11/17 07/11/17 06:59 14:59 22:59 Intake Total 50 100 Balance 50 100 Lab Results Last 24 Hours: Laboratory Results - last 24 hr 07/11/17 07/11/17 07/11/17 Range/Units 06:25 06:25 06:25 WBC 5.81 (3.98-10.04) K/mm3 RBC 4.03 (3.98-5.22) M/mm3 Hgb 13.1 (11.2-15.7) gm/L Hct 41.3 (34.1-44.9) % MCV 102.5 H (79.4-94.8) fl MCH 32.5 H (25.6-32.2) pg MCHC 31.7 L (32.2-35.5) g/dl RDW Std Deviation 50.5 H (36.4-46.3) fL Plt Count 261 (182-369) K/mm3 MPV 9.8 (9.4-12.3) fl Neut % (Auto) 57.0 (34.0-71.1) % Lymph % (Auto) 28.2 (19.3-51.7) % [place] % (Auto) 11.2 (4.7-12.5) % Eos % (Auto) 3.1 (0.7-5.8) Baso % (Auto) 0.3 (0.1-1.2) % Neut # (Auto) 3.31 (1.56-6.13) K/mm3 Lymph # (Auto) 1.64 (1.18-3.74) K/mm3 [place] # (Auto) 0.65 H (0.24-0.36) K/mm3 Eos # (Auto) 0.18 (0.04-0.36) K/mm3 Baso # (Auto) 0.02 (0.01-0.08) K/mm3 Sodium 143 (136-145) mEq/L Potassium 4.3 (3.5-5.1) mEq/L Chloride 106 (98-107) mEq/L Carbon Dioxide 31 (21-32) mEq/L Anion Gap 10.3 (5-15) BUN 10 (7-18) mg/dL Creatinine 0.5 L (0.55-1.02) mg/dL Est Cr Clr Drug Dosing 65.46 mL/min Estimated GFR (MDRD) > 60 (>60) mL/min BUN/Creatinine Ratio 20.0 H (14-18) Glucose 88 (83-115) mg/dL Lactic Acid 0.9 (0.4-2.0) mmol/L Calcium 9.1 (8.5-10.1) mg/dL C-Reactive Protein 2.9 H* (<1.0) mg/dL Vitamin B12 (193-986) pg/ml Folate (8.6-58.9) ng/mL 07/11/17 Range/Units 06:25 WBC (3.98-10.04) K/mm3 RBC (3.98-5.22) M/mm3 Hgb (11.2-15.7) gm/L Hct (34.1-44.9) % MCV (79.4-94.8) fl MCH (25.6-32.2) pg MCHC (32.2-35.5) g/dl RDW Std Deviation (36.4-46.3) fL Plt Count (182-369) K/mm3 MPV (9.4-12.3) fl Neut % (Auto) (34.0-71.1) % Lymph % (Auto) (19.3-51.7) % [place] % (Auto) (4.7-12.5) % Eos % (Auto) (0.7-5.8) Baso % (Auto) (0.1-1.2) % Neut # (Auto) (1.56-6.13) K/mm3 Lymph # (Auto) (1.18-3.74) K/mm3 [place] # (Auto) (0.24-0.36) K/mm3 Eos # (Auto) (0.04-0.36) K/mm3 Baso # (Auto) (0.01-0.08) K/mm3 Sodium (136-145) mEq/L Potassium (3.5-5.1) mEq/L Chloride (98-107) mEq/L Carbon Dioxide (21-32) mEq/L Anion Gap (5-15) BUN (7-18) mg/dL Creatinine (0.55-1.02) mg/dL Est Cr Clr Drug Dosing mL/min Estimated GFR (MDRD) (>60) mL/min BUN/Creatinine Ratio (14-18) Glucose (83-115) mg/dL Lactic Acid (0.4-2.0) mmol/L Calcium (8.5-10.1) mg/dL C-Reactive Protein (<1.0) mg/dL Vitamin B12 480 (193-986) pg/ml Folate 18.0 (8.6-58.9) ng/mL Med Orders - Current: Current Medications Amlodipine Besylate (Norvasc) 5 mg PO DAILY@1800 [facility] Last Admin: 07/10/17 17:17 Dose: 5 mg Aspirin (Halfprin) 81 mg PO DAILY@0800 [facility] Last Admin: 07/11/17 10:00 Dose: 81 mg Bisacodyl (Dulcolax) 5 mg PO ASDIRECTED PRN PRN Reason: Constipation Clopidogrel Bisulfate (Plavix) 75 mg PO DAILY@0800 [facility] Last Admin: 07/11/17 10:00 Dose: 75 mg Doxycycline Hyclate (Vibramycin) 100 mg PO BID [facility] Enoxaparin Sodium (Lovenox) 60 mg SUBCUT Q12H [facility] Last Admin: 07/11/17 05:41 Dose: 60 mg Gabapentin (Neurontin) 300 mg PO DAILY@1800 [facility] Last Admin: 07/10/17 17:21 Dose: 300 mg Memantine (Namenda) 10 mg PO BID@0800,1800 [facility] Last Admin: 07/11/17 10:00 Dose: 10 mg Polyethylene Glycol (Miralax) 17 gm PO DAILY PRN PRN Reason: Constipation Quetiapine Fumarate (Seroquel) 25 mg PO QPM [facility] Last Admin: 07/10/17 17:16 Dose: 25 mg Saccharomyces Boulardii (Florastor) 250 mg PO BID [facility] Last Admin: 07/11/17 10:00 Dose: 250 mg Senna/Docusate Sodium (Senna Plus) 1 tab PO BID@0800,1800 [facility] Last Admin: 07/11/17 10:00 Dose: 1 tab Sertraline HCl (Zoloft) 50 mg PO QPM [facility] Last Admin: 07/10/17 17:15 Dose: 50 mg Simvastatin (Zocor) 10 mg PO QPM [facility] Last Admin: 07/10/17 17:16 Dose: 10 mg Tramadol HCl (Ultram) 50 mg PO BID@0800,1800 [facility] Last Admin: 07/11/17 09:59 Dose: 50 mg Discontinued Medications Acetaminophen (Tylenol) 650 mg PO NOW ONE Stop: 07/08/17 10:14 Last Admin: 07/08/17 10:22 Dose: 650 mg Amlodipine Besylate (Norvasc) 5 mg PO DAILY@0800 [facility] Last Admin: 07/10/17 08:13 Dose: Not Given Clopidogrel Bisulfate (Plavix) 300 mg PO ONETIME ONE Stop: 07/08/17 15:16 Last Admin: 07/08/17 15:47 Dose: 300 mg Sodium Chloride (Normal Saline) 1,000 mls @ 500 mls/hr IV ASDIRECTED [facility] Last Admin: 07/08/17 09:16 Dose: 500 mls/hr Sodium Chloride (Sodium Chloride 0.45%) 1,000 mls @ 100 mls/hr IV ASDIRECTED [facility] Stop: 07/09/17 09:00 Last Admin: 07/09/17 01:28 Dose: 100 mls/hr Doxycycline Hyclate 100 mg/ (Sodium Chloride) 100 mls @ 100 mls/hr IV Q12HR [facility] Last Admin: 07/11/17 10:00 Dose: 100 mls/hr Potassium Chloride (Potassium Chloride) 60 meq PO DAILY [facility] Stop: 07/11/17 09:01 Last Admin: 07/10/17 08:13 Dose: 60 meq - Exam Quality Assessment: No: Supplemental Oxygen General: No Acute Distress, Lethargic HEENT: Pupils Equal, Pupils Reactive, Mucous Membr. Moist/[place] Neck: Supple, Trachea Midline Lungs: Normal Respiratory Effort, Decreased Breath Sounds Cardiovascular: Regular Rate, Regular Rhythm GI/Abdominal Exam: Normal Bowel Sounds, Soft, Non-Tender, No Organomegaly, No Distention, No Abnormal Bruit (Female) Exam: Deferred Back Exam: Normal Inspection, Decreased Range of Motion Extremities: Normal Inspection, Normal Range of Motion, Non-Tender, No Pedal Edema, Normal Capillary Refill, Limited Range of Motion, Other (she is usually bed bound requiring javier lift to transfer) Peripheral Pulses: 2+: Dorsalis Pedis (L), Dorsalis Pedis (R) Skin: Warm, Dry, Intact Neurological: No New Focal Deficit, Other (baseline: left facial weaknes and right sided hemiparesis). No: Normal Gait Psy/Mental Status: Normal Affect, Normal Mood - Problem List Review Problem List Initiated/Reviewed/Updated: Yes - My Orders Last 24 Hours: My Active Orders 07/11/17 21:00 Doxycycline [Vibramycin] 100 mg PO BID - Plan Plan:: Impression: Acute: ACS/NONSTEMI - Without prior documented history - ECG changes suggest an old PR - ASA/Plavix and Lovenox per Protocol Bronchitis - 2/2 Mycoplasma Pneumoniae - On Vibramycin 100 mg po BID - PRN Bronchodilators and Decongestant/Expectorant Polypharmacy Risk - Gabapentin, Namenda, Seroquel, Zoloft and Tramadol--> all affect mental status - Advised daughter to discussed home meds on follow up appointment with PCP Resolved: S/p Hypokalemia - K 2.9 --> 4.3 S/P AMS with Generalized Weakness Chronic PAF on Xarelto HTN HLD: Lipid panel--L Trig 2186 and HDL is elevated Fibromyalgia History of CVA with right sided hemiparesis History of dementia with acute on chronic mental status change Plan: She is clinically stable ACS protocol, conservative approach Continue home meds after swallow evaluation Coverage for mycoplasma 2 D echo re: LVEF, WMA Daily Labs Consult PT/OT.CM (re: ) Code status, DNR/DNI; clarify comfort measures DVT/GI prophylaxis
[2017-07-11] MEDS: Gabapentin 300 MG Cap PO SCH (18:17)
[2017-07-11] MEDS: QUEtiapine 25 MG Tab PO SCH (18:17)
[2017-07-11] MEDS: amLODIPine 5 MG Tab PO SCH (18:17)
[2017-07-11] MEDS: Simvastatin 10 MG Tab PO SCH (18:17)
[2017-07-11] MEDS: Sertraline 50 MG Tab PO SCH (18:17)
[2017-07-11] MEDS: Doxycycline 100 MG Cap PO SCH (21:31)
[2017-07-12] MEDS ORDERED: guaiFENesin/Dextromethorphan 100-10 MG/5 ML Soln 5 ML Cup PO PRN (01:49)
[2017-07-12] MEDS: Enoxaparin 60 MG/0.6 ML Syringe SUBCUT SCH (05:56)
[2017-07-12 08:07] VITALS: BP 131/91
[2017-07-12] MEDS: Memantine 10 MG Tab PO SCH (08:17)
[2017-07-12] MEDS: Saccharomyces Boulardii (Probiotic) 250 MG Cap PO SCH (08:17)
[2017-07-12] MEDS: traMADol 50 MG Tab PO SCH (08:18)
[2017-07-12] MEDS: Clopidogrel 75 MG Tab PO SCH (08:18)
[2017-07-12] MEDS: Doxycycline 100 MG Cap PO SCH (08:18)
[2017-07-12] MEDS: Aspirin 81 MG Tab.EC PO SCH (08:18)
--- NOTE | 2017-07-12 11:09 | PCM.DCSUM1 ---
Discharge Summary - Hospital Course Free Text/Narrative:: 81 year old female living at home with her daughter post CVA with a history of dementia presents hypoxic. The patient is more confused. She was placed on a NRM in the field, baseline oxygen saturation is unknown. She has right sided hemiparesis, and expressive aphasia. Initial evaluation documented volume depletion. Abnormal lab findings document, an elevated cardiac enzyme. She did not have a rapid heart rate on presentation; she has a history of PAF reportedly on Xarelto. - Discharge Data Discharge Date: 07/12/17 (admit date 07/08/17) Discharge Disposition: Home, Self-Care 01 Condition: Good - Discharge Diagnosis/Problem(s) (1) Acute myocardial infarction SNOMED Code(s): 45865728 ICD Code: I21.9 - ACUTE MYOCARDIAL INFARCTION, UNSPECIFIED Status: Resolved Priority: High Current Visit: Yes Qualifiers: Myocardial infarction type: non-ST elevation myocardial infarction Qualified Code(s): I21.4 - Non-ST elevation (NSTEMI) myocardial infarction (2) Hemiparesis affecting right side as late effect of cerebrovascular accident SNOMED Code(s): 056672098 ICD Code: I69.351 - HEMIPLGA FOLLOWING CEREBRAL INFRC AFF RIGHT DOMINANT SIDE Status: Chronic Current Visit: Yes (3) Leukocytosis SNOMED Code(s): 616102969 ICD Code: D72.829 - ELEVATED WHITE BLOOD CELL COUNT, UNSPECIFIED Status: Resolved Current Visit: Yes Qualifiers: Leukocytosis type: unspecified Qualified Code(s): D72.829 - Elevated white blood cell count, unspecified (4) Elevated C-reactive protein (CRP) SNOMED Code(s): 211569362793270 ICD Code: R79.82 - ELEVATED C-REACTIVE PROTEIN (CRP) Status: Resolved Current Visit: Yes - Patient Summary/Data Operative Procedure(s) Performed: None Complications: None Consults: Consultations 07/08/17 14:01 LINER INSTALLER Evaluation and Treatment [CONS] Routine 07/08/17 14:56 Consult to Occupational Therapy [OT Evaluation and Treatment] [CONS] Routine Consult to Physical Therapy [PT Evaluation and Treatment] [CONS] Routine 07/08/17 15:30 Consult to Case Management [CONS] Routine Labs Pending at D/C: None Recommended Follow-up Testing/Procedures: Patient DC instructions: No further LINER INSTALLER indicated at this time. Recommend PO intake of NDD2 ( mechanically altered) and thin liquids, NO STRAWS; medications crushed with puree/pudding. Recommend standby assistance during meals to verbally cue pt and provide assistance as needed. Follow up with PCP, Dr. Lam within one week of discharge Continue all usual home medications--no need for further antibiotics as completed course during hospital stay. 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 - On Vibramycin 100 mg po BID--completed 5 day course, no need for abx on DC - PRN Bronchodilators and Decongestant/Expectorant Polypharmacy Risk - Gabapentin, Namenda, Seroquel, Zoloft and Tramadol--> all affect mental status - Advised daughter to discussed home meds on follow up appointment with PCP Resolved: S/p Hypokalemia - K 2.9 --> 4.3 S/P AMS with Generalized Weakness Chronic PAF on Xarelto HTN HLD: Lipid panel--L Trig 2186 and HDL is elevated--cont home statin Fibromyalgia History of CVA with right sided hemiparesis History of dementia with acute on chronic mental status change Plan: She is clinically stable ACS protocol, conservative approach Continue home meds after swallow evaluation Coverage for mycoplasma 2 D echo re: LVEF, WMA Daily Labs Consult PT/OT.CM (re: ) Code status, DNR/DNI; clarify comfort measures DVT/GI prophylaxis - Patient Instructions Diet: Heart Healthy Diet, Mechanical Soft (NDD2 diet, no straws, assistance with meals) Activity: As Tolerated (cont with usual transfers at home) Driving: Do Not Drive Showering/Bathing: May Shower Notify Provider of: Fever, Increased Pain, Nausea and/or Vomiting (chest pain, shortness of breath, palpitations, other ?'s or concerns. ) - Discharge Plan Home Medications: Home Meds Acetaminophen [Tylenol] 650 mg PO 06,12,18 07/08/17 [History] Aspirin [Lo-Dose Aspirin EC] 81 mg PO 08 07/08/17 [History] Bisacodyl [Correctol] 5 mg PO ASDIRECTED PRN 07/08/17 [History] Clopidogrel [Plavix] 75 mg PO 08 07/08/17 [History] Cranberry 400 mg PO 08 07/08/17 [History] Gabapentin [Neurontin] 300 mg PO 1800 07/08/17 [History] Hydrochlorothiazide 25 mg PO 08 07/08/17 [History] Memantine [Namenda] 10 mg PO 07/08/17 [History] Polyethylene Glycol 3350 [MiraLAX] 17 gm PO DAILY PRN 07/08/17 [History] QUEtiapine Fumarate [Seroquel] 25 mg PO 1800 07/08/17 [History] Sennosides/Docusate Sodium [Senna-Docusate Sodium] 1 tab PO 07/08/17 [ History] Sertraline [Zoloft] 50 mg PO 1800 07/08/17 [History] amLODIPine [Norvasc] 5 mg PO 08 07/08/17 [History] atorvaSTATin [Lipitor] 10 mg PO 1800 07/08/17 [History] traMADol [Ultram] 50 mg PO 07/08/17 [History] Patient Handouts: Non-ST Segment Elevation Heart Attack, Heart Attack, Easy-to- Read Forms: ED Department Discharge Referrals: Arnel Lam MD [Primary Care Provider] - - Discharge Summary/Plan Comment DC Time >30 min.: Yes (40 min) - Patient Data Vitals - Most Recent: Last Vital Signs Temp 99.0 F 07/12/17 08:03 Pulse 78 07/12/17 09:47 Resp 16 07/12/17 08:03 BP 131/91 H 07/12/17 08:03 Pulse Ox 90 L 07/12/17 09:47 Weight - Most Recent: 150 lb 8 oz I&O - Last 24 hours: Intake & Output 07/11/17 07/12/17 07/12/17 22:59 06:59 14:59 Intake Total 320 50 300 Output Total 0 Balance 320 50 300 Lab Results - Last 24 hrs: Laboratory Results - last 24 hr 07/12/17 07/12/17 07/12/17 Range/Units 06:00 06:00 06:00 WBC 7.75 (3.98-10.04) K/mm3 RBC 4.05 (3.98-5.22) M/mm3 Hgb 13.2 (11.2-15.7) gm/L Hct 41.3 (34.1-44.9) % MCV 102.0 H (79.4-94.8) fl MCH 32.6 H (25.6-32.2) pg MCHC 32.0 L (32.2-35.5) g/dl RDW Std Deviation 49.4 H (36.4-46.3) fL Plt Count 272 (182-369) K/mm3 MPV 9.7 (9.4-12.3) fl Neut % (Auto) 59.2 (34.0-71.1) % Lymph % (Auto) 24.8 (19.3-51.7) % [place] % (Auto) 13.4 H (4.7-12.5) % Eos % (Auto) 2.1 (0.7-5.8) Baso % (Auto) 0.1 (0.1-1.2) % Neut # (Auto) 4.59 (1.56-6.13) K/mm3 Lymph # (Auto) 1.92 (1.18-3.74) K/mm3 [place] # (Auto) 1.04 H (0.24-0.36) K/mm3 Eos # (Auto) 0.16 (0.04-0.36) K/mm3 Baso # (Auto) 0.01 (0.01-0.08) K/mm3 Sodium 141 (136-145) mEq/L Potassium 3.9 (3.5-5.1) mEq/L Chloride 105 (98-107) mEq/L Carbon Dioxide 31 (21-32) mEq/L Anion Gap 8.9 (5-15) BUN 9 (7-18) mg/dL Creatinine 0.6 (0.55-1.02) mg/dL Est Cr Clr Drug Dosing 54.55 mL/min Estimated GFR (MDRD) > 60 (>60) mL/min BUN/Creatinine Ratio 15.0 (14-18) Glucose 86 (83-115) mg/dL Lactic Acid 1.7 (0.4-2.0) mmol/L Calcium 9.3 (8.5-10.1) mg/dL C-Reactive Protein 1.4 H* (<1.0) mg/dL Med Orders - Current: Current Medications Amlodipine Besylate (Norvasc) 5 mg PO DAILY@1800 [facility] Last Admin: 07/11/17 18:17 Dose: 5 mg Aspirin (Halfprin) 81 mg PO DAILY@0800 [facility] Last Admin: 07/12/17 08:18 Dose: 81 mg Bisacodyl (Dulcolax) 5 mg PO ASDIRECTED PRN PRN Reason: Constipation Clopidogrel Bisulfate (Plavix) 75 mg PO DAILY@0800 [facility] Last Admin: 07/12/17 08:18 Dose: 75 mg Doxycycline Hyclate (Vibramycin) 100 mg PO BID [facility] Last Admin: 07/12/17 08:18 Dose: 100 mg Enoxaparin Sodium (Lovenox) 60 mg SUBCUT Q12H [facility] Last Admin: 07/12/17 05:56 Dose: 60 mg Gabapentin (Neurontin) 300 mg PO DAILY@1800 [facility] Last Admin: 07/11/17 18:17 Dose: 300 mg Guaifenesin/Phenylephrine HCl (Robitussin Dm) 5 ml PO Q4H PRN PRN Reason: Cough Memantine (Namenda) 10 mg PO BID@0800,1800 [facility] Last Admin: 07/12/17 08:17 Dose: 10 mg Polyethylene Glycol (Miralax) 17 gm PO DAILY PRN PRN Reason: Constipation Quetiapine Fumarate (Seroquel) 25 mg PO QPM [facility] Last Admin: 07/11/17 18:17 Dose: 25 mg Saccharomyces Boulardii (Florastor) 250 mg PO BID [facility] Last Admin: 07/12/17 08:17 Dose: 250 mg Senna/Docusate Sodium (Senna Plus) 1 tab PO BID@0800,1800 [facility] Last Admin: 07/12/17 08:17 Dose: 1 tab Sertraline HCl (Zoloft) 50 mg PO QPM [facility] Last Admin: 07/11/17 18:17 Dose: 50 mg Simvastatin (Zocor) 10 mg PO QPM [facility] Last Admin: 07/11/17 18:17 Dose: 10 mg Tramadol HCl (Ultram) 50 mg PO BID@0800,1800 [facility] Last Admin: 07/12/17 08:18 Dose: 50 mg Discontinued Medications Acetaminophen (Tylenol) 650 mg PO NOW ONE Stop: 07/08/17 10:14 Last Admin: 07/08/17 10:22 Dose: 650 mg Amlodipine Besylate (Norvasc) 5 mg PO DAILY@0800 [facility] Last Admin: 07/10/17 08:13 Dose: Not Given Clopidogrel Bisulfate (Plavix) 300 mg PO ONETIME ONE Stop: 07/08/17 15:16 Last Admin: 07/08/17 15:47 Dose: 300 mg Sodium Chloride (Normal Saline) 1,000 mls @ 500 mls/hr IV ASDIRECTED [facility] Last Admin: 07/08/17 09:16 Dose: 500 mls/hr Sodium Chloride (Sodium Chloride 0.45%) 1,000 mls @ 100 mls/hr IV ASDIRECTED [facility] Stop: 07/09/17 09:00 Last Admin: 07/09/17 01:28 Dose: 100 mls/hr Doxycycline Hyclate 100 mg/ (Sodium Chloride) 100 mls @ 100 mls/hr IV Q12HR [facility] Last Admin: 07/11/17 10:00 Dose: 100 mls/hr Potassium Chloride (Potassium Chloride) 60 meq PO DAILY [facility] Stop: 07/11/17 09:01 Last Admin: 07/10/17 08:13 Dose: 60 meq *Q Meaningful Use (DIS) - VTE *Q VTE Criteria *Q: - Stroke *Q Stroke Criteria *Q: - AMI *Q AMI Criteria *Q:
== END 2017-07-12 14:16 | disposition home or self-care (01) | DRG 280 ==
LOC: JD.ED 08:51 → JD.MS 11:48 → JD.ED 12:40
PROVIDERS: ADMIT Internal Medicine Cardiovascular Disease; ATTEND Internal Medicine Cardiovascular Disease
DX: I21.4 Non-ST elevation (NSTEMI) myocardial infarction (principal); D72.829 Elevated white blood cell count, unspecified; J15.7 Pneumonia due to Mycoplasma pneumoniae; I69.351 Hemiplegia and hemiparesis following cerebral infarction affecting right dominant side; Z74.01 Bed confinement status; I69.320 Aphasia following cerebral infarction; E78.00 Pure hypercholesterolemia, unspecified; K21.9 Gastro-esophageal reflux disease without esophagitis; R09.02 Hypoxemia; E87.6 Hypokalemia; R79.82 Elevated C-reactive protein (CRP); R41.82 Altered mental status, unspecified; I48.91 Unspecified atrial fibrillation; Z79.01 Long term (current) use of anticoagulants; Z79.02 Long term (current) use of antithrombotics/antiplatelets; F03.90 Unspecified dementia, unspecified severity, without behavioral disturbance, psychotic disturbance, mood disturbance, and anxiety; I10 Essential (primary) hypertension; E78.5 Hyperlipidemia, unspecified; M19.90 Unspecified osteoarthritis, unspecified site; M79.7 Fibromyalgia; H35.30 Unspecified macular degeneration; Z66 Do not resuscitate; Z88.8 Allergy status to other drugs, medicaments and biological substances; Z79.82 Long term (current) use of aspirin; Z79.899 Other long term (current) drug therapy
CPT/HCPCS: 36415; 70450; 71045; 80053; 81003; 82553; 82962; 83605; 83735; 83880; 83930; 84484; 85025; 85610; 86140; 87040 ×2; 87899; 93005; 96360; 96361; 99285; A9270; J7040; 80048; 80061; 82607; 82746; 86738; 87804; 92610-GN; 93010; 93306; 94760; 97161-GP; J1650; J7030